=== PATIENT | male | born 1985 | race Caucasian/White ===

== ENCOUNTER 2025-01-22 10:20 | Emergency (ER) | payer OTHER, SELFPAY ==
--- NOTE | ~2025-01-22 | CT_ITS ---
EXAMINATION: CT ABDOMEN AND PELVIS WITH CONTRAST CLINICAL INFORMATION: 39-year-old male, rectal bleeding, severe abdominal pain in right upper and left lower quadrants. COMPARISON: None available. TECHNIQUE: Multidetector volumetric images were obtained from the superior aspect of the liver through the pubic symphysis following administration 85 mL of Omnipaque 350 intravenous contrast. Sagittal and coronal reformatted images were obtained on the technologist's workstation. Oral contrast: No This CT examination was performed using dose optimization techniques as appropriate, variously including the following: *Automated exposure control *Adjustment of mA and/or kV according to patient size (this includes techniques or standardized protocols for targeted exams where dose is matched to indication/reason for exam; i.e. extremities or head) *Use of iterative reconstruction technique FINDINGS: LUNG BASES: The lung bases are clear. There are no effusions. The heart size is normal. LIVER, GALLBLADDER, AND BILIARY TREE: The liver is normal in size, shape, and attenuation. No focal hepatic lesion or biliary ductal dilatation is present. The gallbladder is unremarkable with no evidence of radiopaque gallstones, gallbladder wall thickening, or obvious pericholecystic inflammatory changes. PANCREAS: Unremarkable. SPLEEN: Unremarkable. ADRENAL GLANDS: Unremarkable. KIDNEYS AND URETERS: The kidneys are normal in size, shape, and attenuation. No hydronephrosis, hydroureter, or calculi seen. No perinephric stranding. BLADDER: Unremarkable. GASTROINTESTINAL TRACT: The appendix is normal. The stomach appears mildly thick-walled but is notably underdistended, nonspecific. The duodenal sweep is normal. The small bowel is normal in caliber and course. There is no wall thickening or mucosal inflammation identified. The colon demonstrates moderate retained fecal material in keeping with constipation. It is otherwise normal in course and caliber. Mild wall thickening of the sigmoid colon is noted extending into the rectum. This could be on the basis of underdistention although a mild segmental colitis is not excluded. The rectum is unremarkable. PERITONEUM: No free air or ascites. ABDOMINAL WALL: No significant hernia is appreciated. LYMPH NODES: No abnormal lymphadenopathy is present. VASCULAR: Normal. There is no aneurysm. PELVIC VISCERA: The prostate and seminal vesicles are unremarkable. OSSEOUS STRUCTURES: There is no suspicious lytic or blastic bone abnormality. CT/CT abdomen pelvis w IV con IMPRESSION: 1. There is mild wall thickening of the sigmoid colon and rectum, findings which could represent a mild segmental colitis versus artifact from underdistention. Recommend correlation with clinical presentation and symptomatology. 2. There is mild to moderate constipation present. 3. There are otherwise no acute findings in the abdomen or pelvis. Electronically signed by: Earnest Arambula MD 01/22/2025 02:04 PM [facility] [place]
[2025-01-22 10:26] VITALS: BP 134/76; PULSE 77; RESP 16; TEMP 36.3; O2SAT 98; BMI 19.9
--- NOTE | 2025-01-22 10:26 | ED_ITS ---
HPI - Abdominal Pain General Chief Complaint: Abdominal Pain Stated Complaint: Blood In Stool Time Seen by Provider: 01/22/25 10:44 Source: patient Mode of arrival: ambulatory Limitations: no limitations History of Present Illness ED Provider: ISADORA Bonilla HPI narrative: This is a 39-year-old male who presents to the emergency department with multiple complaints. Patient reports diffuse abdominal discomfort worse in the right upper quadrant and left lower quadrant reports it is an intermittent aching pain that has been progressively worsening. Prior to this he did no daily discomfort in that region however over the past few weeks it has turned into pain. Patient also reports a significant amount of bright red blood in his stool this is also been going on for 2 weeks prior to this this has never happened before. This morning however he notes he had black stool however he tells me he took Pepto-Bismol. Patient does not have a known history of hemorrhoids. He tells me he has also been having difficulties with weight gain and he has had significant night sweats for the past 5 years. Years ago he had a negative colonoscopy. No family history of colorectal cancer. He denies associated nausea, vomiting, fevers, chills, headache, vision changes, dizziness, chest pain or shortness of breath. Related Data Previous Rx's ?Medication ?Instructions ?Recorded docusate sodium 100 mg capsule 100 mg PO BID #20 caps 01/22/25 (Colace) polyethylene glycol 3350 17 17 g PO BID PRN constipati on #238 01/22/25 gram/dose oral powder (Miralax) grams pramoxine 1 % topical foam 1 appl UT BID #15 grams 10/09 (Proctofoam) sennosides 8.6 mg tablet (senna) 8.6 mg PO BEDTIME #14 tabs 01/22/25 Allergies Allergy/AdvReac Type Severity Reaction Status Date / Time No Known Allergies Allergy Verified 01/22/25 10:27 Review of Systems Review of Systems Yes all other systems are reviewed and are negative [facility] Past Medical History Attestation statement: The following information was validated with the patient. Source: old records reviewed and nursing notes reviewed Social History Social History Advance Directives: No Advance Directives Information Provided: Yes Physical Exam ED Exam Exam: Appearance: Alert.? Oriented X3.? No acute distress.? Head: Normocephalic, atraumatic, no step-offs or deformities Eyes: Pupils equal, round and reactive to light.? ENT: Pharynx normal.? Neck: Normal inspection.? Neck supple.? CVS: Normal heart rate and rhythm.? Pulses normal.? Respiratory: No respiratory distress.? Breath sounds normal.? Abdomen: Soft and diffusely tender however worse in the right upper quadrant and left lower quadrant. Negative Hernandez sign. Negative McBurney's, Rovsing sign.? Skin: Skin warm and dry.? Normal skin color.? Normal skin turgor.? Extremities: No lower extremity edema.? No calf ttp. 5/5 strength to bilateral upper and lower extremities Back: No midline tenderness, no C-spine tenderness, full range of motion, no CVA tenderness bilaterally Neuro: Oriented X 3.? No motor deficit.? No sensory deficit. CN 2-12 intact Vital Signs: Vital Signs - 24 hr 01/22/25 10:26 01/22/25 13:57 Temperature 97.3 F Pulse Rate 77 60 Respiratory Rate 16 14 Blood Pressure 134/76 126/64 Pulse Oximetry 98 97 Oxygen Delivery Method Room Air Room Air BMI result Body Mass Index 19.9 Vital signs stable Course Course Course Narrative: This is an RME: Additional HPI, ROS, PE not included below will be deferred to primary provider. RME assessment and note performed by: Constance Zuñiga PA-C This is a 69-m[age]g-djt-male who presents to the ER with complaints of abdominal pain for a while which is only worsening. Reports that he saw GI and was told that there was nothing he could do as he was using marijuana. Reports that he noticed blood in his stool, yesterday he noticed black stool. Reports that yesterday he took peptobismol and believes that is what caused the black stool. Reports intermittent sharp abdominal pain. No vomiting. No abdominal surgeries. No known diagnoses. +chest pain and heartburn. Diffuse tenderness throughout, abd is soft. Plan: Labs, UA, EKG Reevaluation(s) Reevaluation #1: CBC unremarkable. Chemistry with no acute findings needing intervention. Very mildly elevated transaminases could be in the setting of alcohol use as they are in a nearly 2-1 fashion. Troponin negative. Lipase normal. UA without infection. OBS negative. This was obtained from a stool sample and not a rectal exam. Patient's imaging shows mild wall thickening of the sigmoid colon and rectum could represent mild segmental colitis versus artifact from underdistention. [id number] constipation will prescribe stool softeners. No other acute findings in the abdomen or pelvis. Patient is hemodynamically stable based off his history, physical exam and laboratory findings as well as imaging will have him follow up with GI. Educated patient on diagnosis and treatment plan, answered all question, patient verbalizes understanding. At this time patient will be discharged home, advised to return with new or worsening symptoms. Educated on worrisome signs and symptoms and when to return. At this time I feel comfortable discharge home. Time: 14:17 Reevaluation #2: Patient tells me that he has a history of hemorrhoids. Will send Proctofoam Time: 14:40 Medical Decision Making Medical Decision Making MDM Narrative: This is a 39-year-old male who presents with abdominal pain and rectal bleeding ongoing for the past 2 weeks. Also reports associated night sweats. And difficulty gaining weight. Physical exam Abdomen: Soft and diffusely tender however worse in the right upper quadrant and left lower quadrant. Negative Hernandez sign. Negative McBurney's, Rovsing sign.? History and physical exam concerning for possible lower GI bleed versus diverticulitis versus malignancy. Unlikely acute abdomen. Low suspicion for cholecystitis as patient has negative Hernandez sign and abdominal pain is nonspecific. Unlikely appendicitis, pancreatitis, choledocholithiasis, obstruction. Will rule out metabolic derangements and anemia Plan labs, imaging Differential Diagnosis Differential Diagnoses: The differential diagnosis associated with the presentation includes (History and physical exam concerning for possible lower GI bleed versus diverticulitis versus malignancy. Unlikely acute abdomen. Low suspicion for cholecystitis as patient has negative Hernandez sign and abdominal pain is nonspecific. Unlikely appendicitis, pancreatitis, choledocholithiasis, obstru) Admission/Observation Consideration of admission/observation: Escalation of care including admission/observation considered Lab Data [facility] Lab Attestation statement: I reviewed the patient's lab results. 01/22/25 10:47 01/22/25 10:47 Labs: Lab Results 01/22/25 01/22/25 01/22/25 Range/Units 10:47 11:05 12:59 WBC 6.3 (4.8-10.8) X10*3/uL RBC 5.06 (4.60-5.80) X10*6/uL Hgb 15.5 (14.0-18.0) g/dl Hct 45.3 (42.0-52.0) % MCV 89.5 (80.0-98.0) fL MCH 30.6 (27.0-33.0) pg MCHC 34.2 (31.0-36.0) g/dl RDW 12.4 (11.0-16.0) % Plt Count 308 (160-400) X10*3/uL MPV 9.6 (9.4-12.4) fL Immature Gran % (Auto) 0.5 H (0.0-0.4) % Neut % (Auto) 57.0 (45-73) % Lymph % (Auto) 29.4 (20-40) % Chambers % (Auto) 7.9 (2-11) % Eos % (Auto) 4.7 H (0-4) % Baso % (Auto) 0.5 (0-2) % Lymph # (Auto) 1.9 (1.2-4.9) X10*3/uL Chambers # (Auto) 0.5 (0.1-1.2) X10*3/uL Eos # (Auto) 0.3 (0.0-0.4) X10*3/uL Baso # (Auto) 0.0 (0.0-0.2) X10*3/uL Abs Immat Gran (auto) 0.03 (0.00-0.03) X10*3/uL Absolute Neuts (auto) 3.6 (2.0-8.3) x10*3/uL Absolute Nucleated RBC 0.000 (0.0-0.012) X10*3/uL Nucleated RBC % (auto) 0.0 (0.0-0.2) /100WBC Sodium 138 (135-145) mmol/L Potassium 4.4 (3.3-5.1) mmol/L Chloride 107 (96-108) mmol/L Carbon Dioxide 25 (22-29) mmol/L Anion Gap 10 L (12-20) BUN 17 H (9-16) mg/dL Creatinine 1.02 (0.5-1.4) mg/dL Estim Creat Clear Calc 95.7 Estimated GFR > 60 Random Glucose 93 (60-115) mg/dL Calcium 9.1 (8.4-10.2) mg/dL Magnesium 2.2 (1.6-2.6) mg/dL Total Bilirubin 0.8 (0.0-1.0) mg/dL Direct Bilirubin 0.2 (0.0-0.5) mg/dL AST 39 H (5-37) U/L ALT 50 H (0-40) U/L Alkaline Phosphatase 48 (39-117) U/L Troponin I High Sens < 2.7 (<3.5-35.0) ng/L Total Protein 6.8 (6.5-8.0) g/dL Albumin 4.4 (3.5-5.0) g/dL Lipase 29 (8-78) U/L Urine Color Yellow Urine Appearance Clear Urine pH 6.5 (5.0-9.0) Ur Specific [place] 1.020 (1.005-1.025) Urine Protein Negative (Neg-Trace) mg/dL Urine Glucose (UA) Negative (Negative) mg/dL Urine Ketones Negative (Negative) mg/dL Urine Blood Negative (Negative) Urine Nitrite Negative (Negative) Ur Leukocyte Esterase Negative (Negative) Stool Occult Blood NEGATIVE (NEGATIVE) Blood Type B Positive Antibody Screen NEGATIVE Chronic Conditions Patient?s care impacted by: Other (denies ) Medications Administered Discontinued Medications Generic Name Dose Route Start Last Admin Trade Name Coby PRN Reason Stop Dose Admin Iohexol 100 ml 01/22/25 13:06 01/22/25 13:07 Iohexol 350 Mg/Ml 100 Ml Infus..Btl IV 01/22/25 13:07 85 ml ONCE ONE Administration Critical Care Time Critical Care Time Critical Care Time: No Discharge Plan Discharge Clinical Impression: Abdominal pain, Colitis, Bloody stool Patient Disposition: Home, Self-Care Instructions: Rectal Bleeding (ED), Abdominal Pain (ED), Colitis (ED) Additional Instructions: Take your medications as prescribed. If you were prescribed antibiotics today, it is important that you take your medication to their entirety, do not skip any doses, do not finish them early. Follow-up with your primary care provider this week. Return to the emergency department with new or worsening symptoms. Such as fevers, chills, chest pain, shortness of breath, nausea, vomiting, dizziness, headache, vision changes, lethargy In case of emergency call [address] scan results listed below CT/CT abdomen pelvis w IV con IMPRESSION: 1. There is mild wall thickening of the sigmoid colon and rectum, findings which could represent a mild segmental colitis versus artifact from underdistention. Recommend correlation with clinical presentation and symptomatology. 2. There is mild to moderate constipation present. 3. There are otherwise no acute findings in the abdomen or pelvis. Your stool sample today did not show any blood in stool. This does not mean that this is not occurring it could be from a hemorrhoid or anal fissure. Sent use stool softeners for constipation. I also am sending you a referral for GI Prescriptions: New sennosides [senna] 8.6 mg tablet 8.6 mg PO BEDTIME Qty: 14 0RF docusate sodium [Colace] 100 mg capsule 100 mg PO BID Qty: 20 0RF polyethylene glycol 3350 [Miralax] 17 gram/dose powder 17 g PO BID PRN (Reason: constipation) Qty: 238 0RF pramoxine [Proctofoam] 1 % foam 1 appl UT BID Qty: 15 0RF Referrals: [facility] [Provider Group, Gastroenterology] - 1 week Joan Ruiz MD [Primary Care Provider, Medical] - 1 week Print Language: Ecuadorean
--- NOTE | 2025-01-22 10:29 | ECG_ITS ---
Test Reason : abd pain Blood Pressure : */* mmHG Vent. Rate : 65 BPM Atrial Rate : 65 BPM P-R Int : 138 ms QRS Dur : 118 ms QT Int : 418 ms P-R-T Axes : 69 79 64 degrees QTcB Int : 434 ms Normal sinus rhythm with sinus arrhythmia RSR' or QR pattern in V1 suggests right ventricular conduction delay Borderline ECG No previous ECGs available Referred By: Constance Zuñiga Electronically Signed By: Mauricio Berg
[2025-01-22 11:08] LABS: MANUAL DIFF FLAG NO
[2025-01-22 11:09] LABS: Hematocrit 45.3 % (42.0-52.0); Hemoglobin 15.5 g/dl (14.0-18.0); Imm Gran Abs Auto 0.03 X10*3/uL (0.00-0.03); Imm Gran Pct Auto 0.5 % (0.0-0.4); Lymphocytes Absolute Auto 1.9 X10*3/uL (1.2-4.9); Mean Corpuscular HGB Conc 34.2 g/dl (31.0-36.0); Mean Corpuscular Hemoglobin 30.6 pg (27.0-33.0); Mean Corpuscular Volume 89.5 fL (80.0-98.0); NRBC Abs Auto 0.000 X10*3/uL (0.0-0.012); NRBC Pct Auto 0.0 /100WBC (0.0-0.2); Platelet Count 308 X10*3/uL (160-400); Red Blood Count 5.06 X10*6/uL (4.60-5.80); White Blood Count 6.3 X10*3/uL (4.8-10.8)
[2025-01-22 11:30] LABS: Alanine Aminotransferase 50 U/L (0-40); Albumin Level 4.4 g/dL (3.5-5.0); Alkaline Phosphatase 48 U/L (39-117); Anion Gap 10 (12-20); Aspartate Amino Transferase 39 U/L (5-37); Blood Urea Nitrogen 17 mg/dL (9-16); Calcium 9.1 mg/dL (8.4-10.2); Carbon Dioxide 25 mmol/L (22-29); Chloride 107 mmol/L (96-108); Creatinine Clr Calc Pharmacy 95.7; Estimated Glomerular Filt Rate > 60; Lipase 29 U/L (8-78); Magnesium 2.2 mg/dL (1.6-2.6); Potassium 4.4 mmol/L (3.3-5.1); Sodium 138 mmol/L (135-145); Total Protein 6.8 g/dL (6.5-8.0)
[2025-01-22 11:38] LABS: Troponin-I High Sensitivity < 2.7 ng/L (<3.5-35.0)
--- OUTSIDE RECORDS SUMMARY | 2025-01-22 12:44 | XMS_ITS | Encounter Summary ---
Author Organization [facility] Address [address] [place] [address] Care Team Providers Care Cloth Printing Back Tender Name Role Phone Joan Ruiz MD Primary Care Provider [phone] Reason for Visit * Reason Onset Date Comments Black or Bloody Stool 01/22/2025 Abdominal Pain 01/22/2025 Encounter Details Date Type Department Care Team ([facility] st Contact Info) Description 01/22/2025 Telephone Adult Medicine [address] [place] [id number] Joellen Amador MA Social History Tobacco Use Types Packs/Day Years Used Date Smoking Tobacco: Former Cigarettes Q uit: 03/18/2015 Smokeless Tobacco: Current Alcohol Use Standard Drinks/Week Comments No 0 (1 standard drink = 0.6 oz pur e alcohol) Sex and Gender Information Value Date Recorded Sex Assigned at Not on file Legal Sex Male 1:24 PM EST Gender Identity Not on file Sexual Orientation Not on file documented as of this encounter Progress Notes * Alley Tenorio RN - 01/22/2025 9:23 AM EST Pt has hx of abd pain and bowel symptoms of bleeding and diarrhea x years, recently much much worse and in past 2 days black stools ( before taking Pepto bismol) and bright red blood in stools Pt has epigastric pain all the time, like a heart attack or indigestion, no SOB. Pain is worse after eating, has nausea no vomiting, pain is in RUQ with no radiation, pain is sharp and constant ( was intermittent until a few days ago) stools are loose and had black specks but yesterday had looseblack stools with bright red blood pt is feeling weak and tired Pt advised to go to the ed now, he understands and agrees * Alize Vallejo - 01/22/2025 9:20 AM EST Patient is calling back. * Alley Tenorio RN - 01/22/2025 9:02 AM EST Call to pt. Left message for pt to call triage * Joellen Amador MA - 01/22/2025 8:55 AM EST Patient call requires triage: Symptoms patient is presenting: Black and Bloody Stool with Abdominal Pain How long has patient had these symptoms?: 2 days For ALL patients calling to schedule any appointment (routine, sick visit, follow up, consult, etc.) in the outpatient setting please ask the following questions: Do you have fever of higher than 101, sore throat with difficulty swallowing or severe shortness ofbreath? no If YES to any of these above symptoms, send a message to triage and do not book. Red dot. If no, an audio or video visit should be booked. Have you had close contact with someone with Coronavirus in the last 14 days? no Have you traveled abroad? no Have you traveled recently to another state outside of [place], [place], [place], [place], [place], [place], [place]? no o If yes, did you quarantine for 14 days or have a negative covid test? no If yes to any of the above, patient is not to be scheduled in office until after 14 day quarantine or negative covid test. If pain or injury related was it due to an accident at work or from a motor vehicle accident? If yes, date of accident/Injury: No If yes, gather 3rd republican insurance information Third Green Party Information: not applicable PCP: Joan Ruiz MD Payor: [employer] PLAN / [facility] / Product Type: *No Product type* / documented in this encounter Plan of Treatment Upcoming Encounters Date Type Department Care Team (Late st Contact Info) Description 04/22/2025 9:00 AM EST Office Visit [place] [facility] [address] [place] [address] Joan Ruiz MD [address] [place] [address] documented as of this encounter Visit Diagnoses Not on filedocumented in this encounter Care Teams Cloth Printing Back Tender Relationship Specialty Start Date End Date Joan Ruiz MD [address] [place] [phone] PCP - General Internal Medicine 07/28/20 documented as of this encounter
--- OUTSIDE RECORDS SUMMARY | 2025-01-22 12:44 | XMS_ITS ---
Author Name [facility] Organization Unknown History of Medication Use Medication Directions Dispensed Refills Start Date End Date Stat us acetaminophen (TYLENOL) 500 MG tablet Take 1-2 tablets (500-1,000 mg total) by mouth every 6 (six) hours as needed for pain (Max 6 tablets/24 hrs) for up to 7 days 04/04/2024 04/12/2024 active benzonatate (TESSALON) 100 MG capsule Swallow whole one (100mg) capsule by mouth 3 times a day as needed.Do not break, chew, dissolve, cut or crush. 04/04/2024 active oseltamivir (TAMIFLU) 75 MG capsule Take 1 capsule (75 mg total) by mouth 2 (two) times a day for 5 days 04/04/2024 active sertraline (ZOLOFT) 25 MG tablet Take 1 tablet (25 mg total) by mouth daily active Problems Problem Status Onset Date Problem Type Date of Resolution Source Acute pharyngitis, unspecified etiology active EncounterDiagnosisAct CT_[facility] Influenza with respiratory manifestation other than pneumonia active EncounterDiagnosisAct CT_C VSMCCT Encounters Encounter Type Encounter Reason Primary Diagnosis Location Date Ambulatory Respiratory Influenza due to unidentified influenza virus with other respiratory manifestations [facility] 04/04/2024 Care Team Organization Name Specialty Phone Email Start Date End Da te [facility] NO PCP Primary Care 04/04 [facility] Iain Cristobal Primary Care 08/24/202211/03 [facility] Sara Primary Care 05/23/2022 11/04/2023 [facility] Shaheen Cowan DO Primary Care 01/23/202210/16
--- OUTSIDE RECORDS SUMMARY | 2025-01-22 12:44 | XMS_ITS | Clinical Summary ---
Author Organization [facility] [address] [place] [address] [place] [address] [place] [address] Phone Care Team Providers Care Art Educator Name Role Phone Joan Ruiz MD Primary Care Provider [phone] Allergies Active Allergy Reactions Criticality Noted Date Comments Oxymetazoline Hcl Other 01/24/2008 Pt experienced throat tightness/sob Medications sertraline (ZOLOFT) 25 mg tablet Take 1 tablet (25 mg total) by mouth 1 (one) time each day. 04/22/2023 Active Active Problems Problem Noted Date Diagnosed Date History of substance abuse (CMS/[facility] V24, [facility] V28) 03/05/2024 Depression 02/03/2022 Nocturnal hypoxemia 10/12/2020 Obstructive sleep apnea 10/12/2020 Overview (03/05/2024): [facility] Home Sleep Apnea Test: Date 10/04/2020; Wt 150#; BMI 20; KYLIE (AHI) 7, AI 0.4; HI 7; Unclassified apneas 0; Obstructive apneas 2; Central apneas 0; Mixed apneas 0; hypopneas 33; average oxygen saturation 91% (lowest 81% with saturations <88% for 5% or more of study) - Obstructive Sleep Apnea - mild; mostly hypopneas; with sleep related hypoventilation by 2020 home sleep apnea test. 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 Referred to urology 01/03- did not complete release info and could not be reached for referral, letter sent. Chronic diarrhea 08/08/2016 Encounters Date Type Department Care Team Description 01/22/2025 Telephone Adult Medicine [address] [phone] Joellen Amador MA from Last 3 Months Immunizations Immunization Administration Dates Next Due Influenza trivalent, 0.5mL, preservative free (Fluarix; FluLaval; Fluzone) ages 6mo and older (Afluria) 3 years and older 2016 Tdap Tetanus diptheria acell ular pertussis (Boostrix; Adacel) 7yo and older 07/16/2016 Surgical History Surgery Date Site/Laterality Comments MULTIPLE TOOTH EXTRACTIONS PROCEDURE: HISTORICAL DENTAL EXTRACTION Medical History Medical History Date Comments History of substance abuse ( [facility] V24, [facility] V28) DX:History of substance abus e ([facility]) Chronic diarrhea 08/08/2016 DX:Chronic diar billy Family History Medical History Relation Name Comments Heart attack Father recurrent faint ing COPD Mother +smoker Alzheimer's disease Paternal Grandfather Relation Name Status Comments Brother x 2 Alive Father Alive Maternal Grandfather Maternal Grandmother Mother Alive Paternal Grandfather Paternal Grandmother Social History Tobacco Use Types Packs/Day Years [...] on file Sexual Orientation Not on file Obstetrics History Last Filed Vital Signs Vital Sign Reading Time Taken Comments Blood Pressure 115/75 06/17/2023 8:05 AM EDT Pulse 76 06/17/2023 8:05 AM EDT Temperature - - Respiratory Rate - - Oxygen Saturation - - Inhaled Oxygen Concentration - - Weight 68 kg (150 lb) 06/17/2023 8:05 AM EDT Height 185.4 cm (6' 1 ) 06/17/2023 8:05 AM EDT Body Mass Index 19.79 06/17/2023 8:05 AM EDT Plan of Treatment Upcoming Encounters Date Type Department Care Team ([facility] Contact Info) Description 04/22/2025 9:00 AM EST Office Visit [place] [facility] [address] [place] [address] Joan Ruiz MD [address] [place] [address] Health Maintenance Due Date Last Done Comments Hepatitis B Vaccines (1 of 3 - 19+ 3-dose series) 02/16/2003 HPV Vaccines (1 - 3-dose SCD M series) 02/16/2011 Social Influencers of Health Screening 02/13/2022 Depression Screening 03/18/2024 05/30/2023 COVID-19 Vaccine ( - 2024-2 6 season) 2024 03/17/2021, 07/08/2020, 06/16/2020 Influenza Vaccine (#1) 2024 2016 DTaP,Tdap,and Td Vaccines (2 - Td or Tdap) 07/16/2026 07/16/2016 Cholesterol Screening (Lipid Panel) 04/23/2027 04/23/2022 RSV Immunization Adult Patients (1 - 1-dose 75+ series) 02/16/2059 HIV Screening Completed 02/18/2023 Hepatitis C Screening Completed 02/18/2023 HIB Vaccines Aged Out No longer eligi ble based on patient's age to complete this topic Hepatitis A Vaccines Aged Out No long er eligible based on patient's age to complete this topic IPV Vaccines Aged Out No longer eligi ble based on patient's age to complete this topic MMR Vaccines Aged Out No longer eligi ble based on patient's age to complete this topic Meningococcal ACWY Vaccine Aged Out N o longer eligible based on patient's age to complete this topic Meningococcal B Vaccine Aged Out No l onger eligible based on patient's age to complete this topic Pneumococcal Vaccine: Pediatrics (0 to 5 Years) and At-Risk Patients (6 to 49 Years) Aged Out No longer eligible b ased on patient's age to complete this topic RSV Immunization Patients Under 20 months Aged Out No longer eligible b ased on patient's age to complete this topic Varicella Vaccines Aged Out No longer eligible based on patient's age to complete this topic Procedures Procedure Name Priority Date/Time Associated Diagnosis Comments DEPRESSION SCREENING Routine 05/30/2023 HEPATITIS C SCREENING Routine 02/18/2023 HIV SCREENING Routine 02/18/2023 LIPID PANEL Routine 04/23/2022 from Last 3 Months or Most Recently Relevant to Health Maintenance Results * Depression Screening (05/30/2023) Pathologist On license of [facility] Depression Screening abstracted [facility] Provider HEALTH MAINTENANCE Final Result * HIV Screening (02/18/2023) [facility] HIV Screening abstracted [facility] Provider HEALTH MAINTENANCE Final Result * Hepatitis C Screening (02/18/2023) Pathologist On license of [facility] Hepatitis C Screening abstracted Result [facility] Provider HEALTH MAINTENANCE Final Result * Lipid panel (04/23/2022) Pathologist [facility] LDL/HDL Ratio 2 0 - 4 Triglycerides 143 0 - 150 mg/dL Cholesterol 199 0 - 200 mg/dL HDL 93 >=40 mg/dL LDL Cholesterol 78 0 - 100 mg/dL Blood Venous blood specimen / Unknown [facility] Provider LAB BLOOD ORDERABLES Josefina l Result from Last 3 Months or Most Recently Relevant to Health Maintenance Insurance [facility] [employer] Care Teams Art Educator Relationship Specialty Start Date End Date Joan Ruiz MD [address] [place] [address] PCP - General Internal Medicine 07/28/20
[2025-01-22 13:06] LABS: Appearance Urine Clear; Glucose Urine UA Negative (Negative); PH 6.5 (5.0-9.0); Specific Gravity - Urine 1.020 (1.005-1.025)
[2025-01-22 13:07] LABS: OBS Int Ctl Valid YES; OBS1 NEGATIVE (NEGATIVE)
[2025-01-22] MEDS: iohexoL 350 MG/ML 100 ML INFUS..BTL IV (13:07)
[2025-01-22 13:57] VITALS: BP 126/64; PULSE 60; RESP 14; O2SAT 97
[2025-01-22 14:45] VITALS: BP 126/64; PULSE 60; RESP 14; TEMP 36.6; O2SAT 97
== END 2025-01-22 14:47 | disposition home or self-care (01) ==
PROVIDERS: Physician Assistant; Physician Assistant Medical; Emergency Provider Emergency Medicine Emergency Medical Services; PCP Internal Medicine
DX: K52.9 Noninfective gastroenteritis and colitis, unspecified (principal); R10.11 Right upper quadrant pain; R10.32 Left lower quadrant pain; K92.1 Melena; I49.8 Other specified cardiac arrhythmias; R10.811 Right upper quadrant abdominal tenderness; Z79.899 Other long term (current) drug therapy
CPT/HCPCS: 36415; 74177; 80048; 80076; 81003; 82272; 83690; 83735; 84484; 85025; 86850; 86900; 86901; 93005; 99284; Q9967

== ENCOUNTER → 2025-01-22 10:29 | Outpatient (BNV) | payer OTHER, SELFPAY | PROVIDERS: Emergency Provider Emergency Medicine Emergency Medical Services; PCP Internal Medicine; Visit Provider Internal Medicine Cardiovascular Disease | DX: R07.9 Chest pain, unspecified (principal) | CPT/HCPCS: 93010 ==

== ENCOUNTER → 2025-01-22 11:55 | Outpatient (BNV) | payer OTHER, SELFPAY | PROVIDERS: Emergency Provider Emergency Medicine Emergency Medical Services; PCP Internal Medicine; Visit Provider Radiology Diagnostic Radiology | DX: K63.89 Other specified diseases of intestine (principal); K59.00 Constipation, unspecified | CPT/HCPCS: 74177 ==